=== PATIENT | male | born 1950 ===

== ENCOUNTER 2018-03-30 18:30 | Emergency (ER) | payer OTHER ==
[~2018-03-30] VITALS: Ht 180.3 cm; Wt 97.5 kg
[~2018-03-30 18:30] MED LIST: CIPRO500 MG PO; IMODIUM2 MG PO; TAMS0.4C PO
[2018-03-30] MEDS ORDERED: DIGOXIN125 MCG PO (18:55)
[2018-03-30] MEDS ORDERED: METOPROLOL SUCC50 MG PO (18:55)
== END 2018-03-30 22:33 | disposition home or self-care (01) ==
LOC: ER 18:30
DX: R33.8 Other retention of urine (principal)